=== PATIENT | female | born 1980 | race Caucasian/White ===

== ENCOUNTER 2017-02-23 10:55 | Observation (INO) | payer OTHER ==
[~2017-02-23] VITALS: Ht 149 cm; Wt 58.1 kg
[2017-02-23 11:45] VITALS: BP 110/60
[2017-02-23] MEDS ORDERED: PREN1TAB80 PO (12:08)
== END 2017-02-23 13:30 | disposition home or self-care (01) ==
LOC: 4S 10:55
PROVIDERS: ADMIT Obstetrics & Gynecology; ATTEND Obstetrics & Gynecology
DX: O62.9 Abnormality of forces of labor, unspecified (principal); O09.523 Supervision of elderly multigravida, third trimester; Z3A.39 39 weeks gestation of pregnancy
CPT/HCPCS: 59025; G0378

== ENCOUNTER 2017-02-26 12:00 | Inpatient (IN) | payer OTHER ==
[~2017-02-26] VITALS: Ht 157.5 cm; Wt 58.1 kg
[~2017-02-26 12:00] MED LIST: PREN1TAB80 PO
[2017-02-26 12:40] VITALS: BP 103/57
[2017-02-26] MEDS ORDERED: OXYTOCIN 30 UNITS/LACT RINGERS 500 ML IV ONE (13:48)
[2017-02-26] MEDS ORDERED: OXYTOCIN 30 UNITS/LACT RINGERS 500 ML IV PRN (13:48)
[2017-02-26] MEDS ORDERED: RINGERS SOLUTION,LACTATED 1,000 ML IV PRN (13:48)
[2017-02-26] MEDS ORDERED: METOCLOPRAMIDE HCL 5 MG/ML 2 ML VIAL IVP PRN (14:00)
[2017-02-26] MEDS ORDERED: CITRIC ACID/SODIUM CITRATE 30 ML SOLUTION UDCUP PO PRN (14:00)
[2017-02-26 14:27] LABS: BASOPHILS # (AUTO) 0.03 K/uL (0.00-0.20); BASOPHILS % (AUTO) 0.4 % (0.0-2.0); EOSINOPHILS # (AUTO) 0.02 K/uL (0.00-0.70); HEMATOCRIT 35.3 % (36-46); HEMOGLOBIN 11.8 g/dL (12.0-16.0); LYMPHOCYTES # (AUTO) 1.7 K/uL (1.0-4.8); LYMPHOCYTES % (AUTO) 24.8 % (22.0-44.0); MEAN CORPUSCULAR HGB CONC 33.5 G/dL (31.0-37.0); MEAN CORPUSCULAR VOLUME 108 fL (80-100); MONOCYTES # (AUTO) 0.6 K/uL (0.1-1.0); MONOCYTES % (AUTO) 8.4 % (2.0-9.0); NEUTROPHILS # (AUTO) 4.4 K/uL (1.8-7.7); NEUTROPHILS % (AUTO) 66.2 % (40.0-70.0); RED BLOOD CELL COUNT(AUTO) 3.28 MIL/uL (4.00-5.20); RED CELL DISTRIBUTION WIDTH 16.4 % (11.5-14.5); WHITE BLOOD COUNT (AUTO) 6.7 K/uL (4.5-11.0)
[2017-02-26 14:46] LABS: RBC MORPHOLOGY COMMENT ABNORMAL RBC MORPH
[2017-02-26] MEDS: RINGERS SOLUTION,LACTATED 1,000 ML IV SCH ×2 (15:04→19:04)
[2017-02-26] MEDS ORDERED: OXYGEN THERAPY IH SCH (20:00)
[2017-02-27] MEDS: RINGERS SOLUTION,LACTATED 1,000 ML IV SCH ×4 (02:24→18:18)
[2017-02-27] MEDS: FentaNYL CITRATE-PF 100 MCG/2 ML VIAL IVP PRN ×3 (09:31→11:35)
[2017-02-27] MEDS ORDERED: FentaNYL/BUPIV 0.125%/NS/PF 200 ML ED ONE ×2 (11:09→14:56)
[2017-02-27] MEDS ORDERED: LIDOCAINE HCL 2%/EPI 1:200,000/PF 10 ML VIAL ONE (11:10)
[2017-02-27] MEDS ORDERED: FentaNYL CITRATE-PF 100 MCG/2 ML VIAL ONE (11:10)
[2017-02-27] MEDS ORDERED: LIDOCAINE HCL/PF 2% 5 ML VIAL ONE (14:56)
[2017-02-27] MEDS ORDERED: FentaNYL/BUPIV 0.125%/NS/PF 200 ML ED PRN (17:01)
[2017-02-27] MEDS ORDERED: ONDANSETRON HCL 4 MG/2 ML VIAL IVP PRN (17:15)
[2017-02-27] MEDS ORDERED: NALBUPHINE HCL 10 MG/ML VIAL IVP PRN (17:15)
[2017-02-27] MEDS ORDERED: PROMETHAZINE HCL 12.5 MG in SODIUM CHLORIDE 0.9% 50 ML IV PRN (17:15)
[2017-02-27] MEDS ORDERED: DiphenhydrAMINE HCL 50 MG/ML VIAL IVP PRN (17:15)
[2017-02-28] MEDS ORDERED: RINGERS SOLUTION,LACTATED 1,000 ML IV ONE (02:34)
[2017-02-28] MEDS ORDERED: GLYCERIN/WITCH HAZEL LEAF 40 PADS JAR TP PRN (02:45)
[2017-02-28] MEDS ORDERED: BENZOCAINE 20%/MENTHOL 56 GM SPRAY CANISTER TP PRN (02:45)
[2017-02-28] MEDS ORDERED: LANOLIN 7 GM OINTMENT TP PRN (02:45)
[2017-02-28] MEDS ORDERED: MEASLES/MUMPS/RUBELLA VACCINE, LIVE 0.5 ML/VIAL SQ ONE (02:45)
[2017-02-28] MEDS ORDERED: OxyCODONE HCL/ACETAMINOPHEN 5-325 MG TABLET PO PRN (02:45)
[2017-02-28] MEDS: IBUPROFEN 600 MG TABLET PO PRN ×4 (04:48→23:59)
[2017-02-28] MEDS: MAGNESIUM HYDROXIDE SUSPENSION 30 ML UDCUP PO SCH ×2 (09:08→21:00)
[2017-02-28] MEDS: OxyCODONE HCL/ACETAMINOPHEN 5-325 MG TABLET PO PRN (20:39)
[2017-03-01] MEDS: OxyCODONE HCL/ACETAMINOPHEN 5-325 MG TABLET PO PRN (04:06)
[2017-03-01] MEDS: MAGNESIUM HYDROXIDE SUSPENSION 30 ML UDCUP PO SCH (07:45)
[2017-03-01] MEDS: IBUPROFEN 600 MG TABLET PO PRN (09:50)
[2017-03-01] MEDS ORDERED: IBUP-2070 PO (09:55)
[2017-03-01] MEDS ORDERED: DSS100 PO (09:56)
== END 2017-03-01 10:00 | disposition home or self-care (01) | DRG 775 ==
LOC: 4S 12:00 → OBSVTOIN 12:00
PROVIDERS: ADMIT Obstetrics & Gynecology; ATTEND Obstetrics & Gynecology
PROC: 10E0XZZ Delivery of Products of Conception, External Approach (ICD-10-PCS; principal; 2017-02-28)
PROC: 0DQR0ZZ Repair Anal Sphincter, Open Approach (ICD-10-PCS; 2017-02-28)
PROC: 3E0234Z Introduction of Serum, Toxoid and Vaccine into Muscle, Percutaneous Approach (ICD-10-PCS; 2017-02-28)
PROC: 00HU33Z Insertion of Infusion Device into Spinal Canal, Percutaneous Approach (ICD-10-PCS; 2017-02-28)
PROC: 3E0R3CZ (ICD-10-PCS; 2017-02-28)
DX: O48.0 Post-term pregnancy (principal); O70.20 Third degree perineal laceration during delivery, unspecified; O77.0 Labor and delivery complicated by meconium in amniotic fluid; O36.8130 Decreased fetal movements, third trimester, not applicable or unspecified; O76 Abnormality in fetal heart rate and rhythm complicating labor and delivery; Z3A.40 40 weeks gestation of pregnancy; Z37.0 Single live birth; O09.513 Supervision of elderly primigravida, third trimester; Z23 Encounter for immunization
CPT/HCPCS: J2590; J3010; J3490; J7120

== ENCOUNTER 2018-04-11 12:09 | Observation (INO) | payer OTHER ==
[~2018-04-11] VITALS: Ht 152.4 cm; Wt 60.8 kg
[~2018-04-11 12:09] MED LIST changes: +DSS100 PO; +IBUP-2070 PO
[2018-06-07 10:29] VITALS: BP 109/53
== END 2018-06-07 10:20 | disposition home or self-care (01) ==
LOC: 4S 06-07 09:20
PROVIDERS: ADMIT Obstetrics & Gynecology; ATTEND Obstetrics & Gynecology
DX: O09.523 Supervision of elderly multigravida, third trimester (principal); Z3A.39 39 weeks gestation of pregnancy
CPT/HCPCS: 59025; G0378

== ENCOUNTER 2018-06-11 11:15 | Observation (INO) | payer OTHER ==
[~2018-06-11] VITALS: Ht 150 cm; Wt 59.9 kg
[~2018-06-11 11:15] MED LIST changes: -DSS100 PO; -IBUP-2070 PO
[2018-06-11 12:52] VITALS: BP 106/63
== END 2018-06-11 12:50 | disposition home or self-care (01) ==
LOC: 4S 11:15
PROVIDERS: ADMIT Obstetrics & Gynecology; ATTEND Obstetrics & Gynecology
DX: O62.9 Abnormality of forces of labor, unspecified (principal); O48.0 Post-term pregnancy; O09.523 Supervision of elderly multigravida, third trimester; Z3A.40 40 weeks gestation of pregnancy
CPT/HCPCS: 59025; G0378

== ENCOUNTER 2018-06-13 14:50 | Inpatient (IN) | payer OTHER ==
[~2018-06-13] VITALS: Ht 152.4 cm; Wt 60.8 kg
[2018-06-13] MEDS ORDERED: RINGERS SOLUTION,LACTATED 1,000 ML IV PRN (15:41)
[2018-06-13] MEDS ORDERED: OXYTOCIN 30 UNITS/LACT RINGERS 500 ML IV ONE (15:41)
[2018-06-13 15:45] VITALS: BP 106/51
[2018-06-13] MEDS ORDERED: CITRIC ACID/SODIUM CITRATE 30 ML SOLUTION UDCUP PO PRN (15:45)
[2018-06-13] MEDS ORDERED: FentaNYL CITRATE-PF 100 MCG/2 ML VIAL IVP PRN (15:45)
[2018-06-13] MEDS ORDERED: METOCLOPRAMIDE HCL 5 MG/ML 2 ML VIAL IVP PRN (15:45)
[2018-06-13 16:28] LABS: BASOPHILS % (AUTO) 0.5 % (0.0-2.0); EOSINOPHILS % (AUTO) 0.5 % (1.0-6.0); HEMATOCRIT 37.2 % (36-46); HEMOGLOBIN 12.8 g/dL (12.0-16.0); LYMPHOCYTES # (AUTO) 1.4 K/uL (1.0-4.8); LYMPHOCYTES % (AUTO) 23.3 % (22.0-44.0); MEAN CORPUSCULAR HEMOGLOBIN 36.6 pg (26.0-34.0); MEAN CORPUSCULAR HGB CONC 34.5 G/dL (31.0-37.0); MEAN CORPUSCULAR VOLUME 106 fL (80-100); MONOCYTES # (AUTO) 0.6 K/uL (0.1-1.0); MONOCYTES % (AUTO) 9.4 % (2.0-9.0); NEUTROPHILS # (AUTO) 4.1 K/uL (1.8-7.7); NEUTROPHILS % (AUTO) 66.3 % (40.0-70.0); PLATELET COUNT (AUTO)-OB 166 K/uL (150-450); RED BLOOD CELL COUNT(AUTO) 3.51 MIL/uL (4.00-5.20); RED CELL DISTRIBUTION WIDTH 15.1 % (11.5-14.5)
[2018-06-13] MEDS ORDERED: DINOPROSTONE 10 MG VAGINAL SUPPOSITORY VG ONE (16:30)
[2018-06-13] MEDS: RINGERS SOLUTION,LACTATED 1,000 ML IV SCH ×2 (17:35→22:57)
[2018-06-13] MEDS ORDERED: OXYGEN THERAPY IH SCH (20:00)
[2018-06-14] MEDS ORDERED: -PHARMACY NOTE- MISC ONE (04:30)
[2018-06-14] MEDS ORDERED: OXYTOCIN 30 UNITS/LACT RINGERS 500 ML IV PRN ×2 (06:23→06:55)
[2018-06-14] MEDS ORDERED: ROPIVACAINE HCL/PF 0.2% 100 ML ED ONE (09:13)
[2018-06-14] MEDS ORDERED: ROPIVACAINE HCL/PF 0.2% 100 ML ED PRN (09:47)
[2018-06-14] MEDS: RINGERS SOLUTION,LACTATED 1,000 ML IV SCH (09:53)
[2018-06-14] MEDS ORDERED: DiphenhydrAMINE HCL 50 MG/ML VIAL IVP PRN (10:00)
[2018-06-14] MEDS ORDERED: ONDANSETRON HCL 4 MG/2 ML VIAL IVP PRN (10:00)
[2018-06-14] MEDS ORDERED: BENZOCAINE 20%/MENTHOL 56 GM SPRAY CANISTER TP PRN (12:30)
[2018-06-14] MEDS ORDERED: GLYCERIN/WITCH HAZEL LEAF 40 PADS JAR TP PRN (12:30)
[2018-06-14] MEDS ORDERED: LANOLIN 7 GM OINTMENT TP PRN (12:30)
[2018-06-14] MEDS ORDERED: ACETAMINOPHEN/CODEINE 300-30 MG TABLET PO PRN ×2 (12:30)
[2018-06-14] MEDS: IBUPROFEN 800 MG TABLET PO SCH ×2 (16:45→22:14)
[2018-06-14] MEDS: MAGNESIUM HYDROXIDE SUSPENSION 30 ML UDCUP PO SCH (20:44)
[2018-06-15] MEDS: IBUPROFEN 800 MG TABLET PO SCH (05:03)
[2018-06-15] MEDS: MAGNESIUM HYDROXIDE SUSPENSION 30 ML UDCUP PO SCH (08:35)
[2018-06-15] MEDS ORDERED: IBUP-2070 PO (08:40)
== END 2018-06-15 11:40 | disposition home or self-care (01) | DRG 775 ==
LOC: 4S 14:50 → OBSVTOIN 14:50
PROVIDERS: ADMIT Obstetrics & Gynecology; ATTEND Obstetrics & Gynecology
PROC: 10D07Z6 Extraction of Products of Conception, Vacuum, Via Natural or Artificial Opening (ICD-10-PCS; principal; 2018-06-14)
PROC: 0KQM0ZZ Repair Perineum Muscle, Open Approach (ICD-10-PCS; 2018-06-14)
PROC: 3E0R3BZ Introduction of Anesthetic Agent into Spinal Canal, Percutaneous Approach (ICD-10-PCS; 2018-06-14)
PROC: 00HU33Z Insertion of Infusion Device into Spinal Canal, Percutaneous Approach (ICD-10-PCS; 2018-06-14)
DX: O77.0 Labor and delivery complicated by meconium in amniotic fluid (principal); O70.1 Second degree perineal laceration during delivery; O66.5 Attempted application of vacuum extractor and forceps; Z3A.40 40 weeks gestation of pregnancy; Z37.0 Single live birth
CPT/HCPCS: 86850; 86900; 86901; J2590; J2795; J7120